=== PATIENT | female | born 1975 | race Caucasian/White ===

== ENCOUNTER 2020-07-13 11:09 | Emergency (ER) | payer BC, OTHER ==
[~2020-07-13] VITALS: Ht 170.2 cm; Wt 81.6 kg
[2020-07-13 11:11] VITALS: BP 175/90
== END 2020-07-13 12:18 | disposition home or self-care (01) ==
LOC: ER 11:09
DX: S86.911A Strain of unspecified muscle(s) and tendon(s) at lower leg level, right leg, initial encounter (principal); X58.XXXA Exposure to other specified factors, initial encounter; Y93.89 Activity, other specified; Y92.89 Other specified places as the place of occurrence of the external cause; Y99.8 Other external cause status
CPT/HCPCS: 93971